=== PATIENT | female | born 1945 | race Two or more races ===

== ENCOUNTER 2025-04-20 10:18 | Emergency (ER) | payer OTHER ==
[~2025-04-20] VITALS: Ht 160 cm; Wt 68.0 kg
[2025-04-20] MEDS ORDERED: KETOROLAC TROMETHAMINE 60 MG VIAL IM ONE (15:15)
[2025-04-20] MEDS ORDERED: ORPHENADRINE CITRATE 30 MG/ML AMPUL IM ONE (15:30)
== END 2025-04-20 16:29 ==
LOC: ER 10:18
DX: S89.81XA Other specified injuries of right lower leg, initial encounter (principal); W18.39XA Other fall on same level, initial encounter; Y93.89 Activity, other specified; Y92.018 Other place in single-family (private) house as the place of occurrence of the external cause
CPT/HCPCS: 73560; 96372; 99283; J1885; J2360